=== PATIENT | female | born 1990 | race Caucasian/White ===

== ENCOUNTER 2018-04-20 19:32 | Emergency (ER) | payer BC ==
[2018-04-20 20:41] LABS: BASO # 0.1 10^3/uL (0.0-0.2); BASO % 0.6 % (0.0-1.0); EOS % 0.4 % (0.0-3.0); HEMATOCRIT 35.5 % (36.0-47.0); HEMOGLOBIN 11.9 g/dl (12.0-15.5); IMMATURE GRANULOCYTE % 0.3 % (0-3.0); LYMPH # 2.9 10^3/uL (1.5-6.5); LYMPH % 28.5 % (24.0-44.0); MEAN CORPUSCULAR HEMOGLOBIN 29.3 pg (27.0-33.0); MEAN CORPUSCULAR HGB CONC 33.5 g/dl (32.0-36.5); MEAN CORPUSCULAR VOLUME 87.4 fl (80.0-96.0); MONO # 1.1 10^3/uL (0.0-0.8); MONO % 10.4 % (0.0-5.0); NEUTROPHILS # 6.2 10^3/uL (1.8-7.7); NEUTROPHILS % 59.8 % (36.0-66.0); PLATELET COUNT, AUTOMATED 292 10^3/uL (150-450); RED BLOOD COUNT 4.06 10^6/uL (4.00-5.40); RED CELL DISTRIBUTION WIDTH 12.7 % (11.5-14.5); WHITE BLOOD COUNT 10.3 10^3/uL (4.0-10.0)
[2018-04-20] MEDS: METOPROLOL TART 25 MG TABLET PO (21:00)
[2018-04-20 21:26] LABS: CONTROL LINE HCG INT CTR LINE PRESENT; HCG, SERUM QUALITATIVE NEGATIVE (NEGATIVE)
[2018-04-20 21:41] LABS: FREE T4 4.68 NG/DL (0.76-1.46); GLUCOSE, FASTING 85 MG/DL (70-100); POTASSIUM SERUM 3.9 MEQ/L (3.5-5.1); SODIUM LEVEL 140 MEQ/L (136-145); TROPONIN I < 0.02 NG/ML (< 0.10)
[2018-04-20 21:46] LABS: CK-MB VALUE MASS < 1.0 NG/ML (<3.6)
[2018-04-20 21:47] LABS: ALBUMIN 3.8 GM/DL (3.2-5.2); ALBUMIN/GLOBULIN RATIO 1.15 (1.00-1.93); ALKALINE PHOSPHATASE 56 U/L (45-117); ALT/SGPT 21 U/L (12-78); ANION GAP 10 MEQ/L (8-16); AST/SGOT 15 U/L (7-37); BILIRUBIN,DIRECT 0.2 MG/DL (0.0-0.2); BILIRUBIN,TOTAL 0.4 MG/DL (0.2-1.0); BLOOD UREA NITROGEN 12 MG/DL (7-18); CALCIUM LEVEL 8.7 MG/DL (8.5-10.1); CARBON DIOXIDE LEVEL 24 MEQ/L (21-32); CHLORIDE LEVEL 106 MEQ/L (98-107); CPK CREATINE PHOSPHOKINASE 44 U/L (26-192); GLOMERULAR FILTRATION RATE > 60.0 (>60); LIPASE 107 U/L (73-393); MB/CK RELATIVE INDEX 2.27 (< OR =4); T UPTAKE 49 % (30-39); TOTAL PROTEIN 7.1 GM/DL (6.4-8.2)
[2018-04-20 21:50] LABS: APPEARANCE, URINE CLEAR (CLEAR); BACTERIA, URINE AUTO 2+ (NEGATIVE); BILIRUBIN, URINE AUTO NEGATIVE (NEGATIVE); BLOOD, URINE BLOOD 2+ (NEGATIVE); COLOR, URINE YELLOW (YELLOW); GLUCOSE, URINE (UA) AUTO NEGATIVE (NEGATIVE); KETONE, URINE AUTO 1+ mg/dL (NEGATIVE); LEUKOCYTE ESTERASE, URINE AUTO NEGATIVE (NEGATIVE); MUCUS, URINE SMALL (NEGATIVE); NITRITE, URINE AUTO NEGATIVE (NEGATIVE); PROTEIN, URINE AUTO NEGATIVE (NEGATIVE); RBC, URINE AUTO 28 /HPF (0-3); SPECIFIC GRAVITY URINE AUTO 1.018 (1.002-1.035); SQUAMOUS EPITHELIAL CELL UR AU 1 /HPF (0-6); UROBILINOGEN, URINE AUTO 0.2 mg/dL (0.0-2.0); WBC, URINE AUTO 2 /HPF (0-3)
[2018-04-20 21:52] LABS: THYROID STIMULATING HORMONE 0.006 uIU/ML (0.358-3.740)
[2018-04-20 22:22] LABS: THYROXINE (T4) > 24.0 UG/DL (4.5-12.0)
[2018-04-20] MEDS: traMADol 50 MG TAB PO (22:57)
[2018-04-20] MEDS: predniSONE 20 MG TAB PO (22:58)
== END 2018-04-21 02:10 | disposition home or self-care (01) ==
LOC: M ED 04-21 02:10
DX: E05.90 Thyrotoxicosis, unspecified without thyrotoxic crisis or storm (principal); I48.0 Paroxysmal atrial fibrillation; I47.1 Supraventricular tachycardia; Z91.041 Radiographic dye allergy status; Z88.6 Allergy status to analgesic agent; Z88.5 Allergy status to narcotic agent; Z88.8 Allergy status to other drugs, medicaments and biological substances; Z79.899 Other long term (current) drug therapy
CPT/HCPCS: 74176

== ENCOUNTER 2020-11-28 11:23 | Emergency (ER) | payer BC ==
[~2020-11-28] VITALS: Ht 167.6 cm; Wt 84.2 kg
[~2020-11-28 11:23] MED LIST: FLEC10TA PO; METH25TAB PO; NITR0.4D6 TD; TOPR50TA PO; birth control PO
[2020-11-28] MEDS ORDERED: ONDANSETRON 4MG/2ML VIAL IV ONE (12:00)
[2020-11-28] MEDS ORDERED: NS 1,000 ML IV ONE (12:00)
[2020-11-28] MEDS ORDERED: MORPHINE 4 MG/ML 1ML VIAL/SYRINGE (J2270) IV ONE (12:00)
[2020-11-28 12:16] LABS: HCG, SERUM QUALITATIVE NEGATIVE (NEGATIVE)
[2020-11-28 12:27] LABS: BASO % 0.2 % (0.0-1.0); HEMATOCRIT 41.5 % (36.0-47.0); HEMOGLOBIN 13.2 g/dl (12.0-15.5); LYMPH # 1.2 10^3/uL (1.5-5.0); LYMPH % 7.6 % (24.0-44.0); MEAN CORPUSCULAR HGB CONC 31.8 g/dl (32.0-36.5); MEAN CORPUSCULAR VOLUME 91.2 fl (80.0-96.0); MONO # 1.4 10^3/uL (0.0-0.8); MONO % 8.6 % (0.0-5.0); NEUTROPHILS # 13.3 10^3/uL (1.5-8.5); NEUTROPHILS % 82.7 % (36.0-66.0); PLATELET COUNT, AUTOMATED 354 10^3/uL (150-450); RED BLOOD COUNT 4.55 10^6/uL (4.00-5.40); WHITE BLOOD COUNT 16.1 10^3/uL (4.0-10.0)
[2020-11-28] MEDS ORDERED: NS 1,000 ML IV SCH (12:31)
[2020-11-28 12:36] LABS: ALBUMIN 4.2 GM/DL (3.2-5.2); ALT/SGPT 19 U/L (12-78); BILIRUBIN,DIRECT 0.1 MG/DL (0.0-0.2); BILIRUBIN,TOTAL 0.4 MG/DL (0.2-1.0); BLOOD UREA NITROGEN 10 MG/DL (7-18); CALCIUM LEVEL 8.7 MG/DL (8.5-10.1); CARBON DIOXIDE LEVEL 22 MEQ/L (21-32); CHLORIDE LEVEL 110 MEQ/L (98-107); CREATININE FOR GFR 0.95 MG/DL (0.55-1.30); GLOMERULAR FILTRATION RATE > 60.0 (>60); GLUCOSE, FASTING 141 MG/DL (70-100); LIPASE 111 U/L (73-393); POTASSIUM SERUM 4.1 MEQ/L (3.5-5.1); SODIUM LEVEL 142 MEQ/L (136-145); TOTAL PROTEIN 7.5 GM/DL (6.4-8.2)
--- NOTE | 2020-11-28 13:03 | REP ---
INDICATION: right flank pain, renal colic COMPARISON: 04/20/2018 TECHNIQUE: Axial noncontrast images from the lung bases to the pubic symphysis with coronal and sagittal reformations. This CT examination was performed using the following dose reduction techniques: Automated exposure control, adjustment of mA and/or kv according to the patient's size, and use of iterative reconstruction technique. FINDINGS: Lung bases are clear. Liver, spleen, pancreas, bilateral adrenal glands and kidneys are normal. No hydronephrosis, perinephric stranding, or obstructing ureteral calculi identified. Patient is status post cholecystectomy. The enteric system is without obstruction or acute inflammatory process. Evidence for prior appendectomy noted. Moderate fecal stasis through the colon may be related to patient's symptoms. Pelvis demonstrates normal bladder and mildly prominent uterus raising the possibility of myomatous changes. No ascites. No free air. No adenopathy. Small fat containing periumbilical hernia noted. Abdominal aorta without aneurysm. Musculoskeletal structures are intact. IMPRESSION: 1. Moderate fecal stasis possibly related to patient's symptoms. 2. No further acute abdominopelvic pathology appreciated. 3. Evidence for prior cholecystectomy and appendectomy. 4. Cannot exclude myomatous changes to the uterus. <Electronically signed by Abdirahman Jackson > 11/28/20 [id number]
[2020-11-28] MEDS ORDERED: LevoFLOXacin IV 750 MG in IV 1 EA IV ONE (13:30)
[2020-11-28] MEDS ORDERED: ACETAMINOPHEN 325 MG TAB PO ONE (14:15)
[2020-11-28] MEDS ORDERED: METOCLOPRAMIDE INJ 10MG/2ML VIAL (J2765 PER 1) IV ONE (14:15)
[2020-11-28] MEDS ORDERED: PROMETHAZINE 25 MG TAB PO ONE (14:30)
--- NOTE | 2020-11-28 14:41 | ECGEPIP ---
[facility] - ED Test Date: 2020-11-28 Pat Name: DAYNE MCDUFFIE Department: Room: - Gender: Female [employer] Developer: : 1990 Requested By: LORY BUENROSTRO PA-C. Order Number: [id number] Reading MD: Jennifer Parham Measurements Intervals [place] Rate: 105 P: -23 MN: 167 QRS: 58 QRSD: 88 T: 16 QT: 335 QTc: 444 Interpretive Statements SINUS TACHYCARDIA ABNORMAL RHYTHM ECG NSTTW abnormalities DECREASED RATE 04/20/18 Electronically Signed on 11-28-2020 14:41:07 EST by Jennifer Parham
[2020-11-28 15:44] VITALS: BP 111/65
[2020-11-28] MEDS ORDERED: PROM25TA12 PO (16:05)
[2020-11-28] MEDS ORDERED: LEVO750T13 PO (16:05)
[2020-11-28] MEDS ORDERED: PYRI1TAB5 PO (16:05)
--- NOTE | 2020-11-29 08:59 | ED PDOC ---
Post-Departure Follow-Up radiology report faxed to chetna Esparza Sarah MD Nov 29, 2020 08:59
== END 2020-11-28 17:08 | disposition home or self-care (01) ==
LOC: M ED 11:23
DX: N39.0 Urinary tract infection, site not specified (principal); N10 Acute pyelonephritis; R31.9 Hematuria, unspecified; R00.0 Tachycardia, unspecified; R94.31 Abnormal electrocardiogram [ECG] [EKG]; Z87.442 Personal history of urinary calculi; Z91.041 Radiographic dye allergy status; Z88.6 Allergy status to analgesic agent; Z88.8 Allergy status to other drugs, medicaments and biological substances; Z88.5 Allergy status to narcotic agent; Z88.1 Allergy status to other antibiotic agents
CPT/HCPCS: 36415; 74176; 80048; 80076; 81001; 83690; 84703; 85025; 87086; 93005; 96361; 96365; 96366; 96375; 99284; J1956; J2270; J2405

== ENCOUNTER 2020-12-05 12:16 | Emergency (ER) | payer BC ==
[~2020-12-05] VITALS: Ht 167.6 cm; Wt 77.3 kg
[~2020-12-05 12:16] MED LIST changes: +LEVO750T13 PO; +PROM25TA12 PO; +PYRI1TAB5 PO
[2020-12-05 13:29] LABS: BASO # 0.1 10^3/uL (0.0-0.2); BASO % 0.8 % (0.0-1.0); EOS # 0.3 10^3/uL (0.0-0.5); EOS % 2.7 % (0.0-3.0); HEMATOCRIT 39.4 % (36.0-47.0); HEMOGLOBIN 12.5 g/dl (12.0-15.5); LYMPH # 2.5 10^3/uL (1.5-5.0); MEAN CORPUSCULAR HEMOGLOBIN 28.7 pg (27.0-33.0); MEAN CORPUSCULAR HGB CONC 31.7 g/dl (32.0-36.5); MEAN CORPUSCULAR VOLUME 90.4 fl (80.0-96.0); MONO % 9.2 % (0.0-5.0); NEUTROPHILS # 6.5 10^3/uL (1.5-8.5); NEUTROPHILS % 62.3 % (36.0-66.0); PLATELET COUNT, AUTOMATED 333 10^3/uL (150-450); RED BLOOD COUNT 4.36 10^6/uL (4.00-5.40); WHITE BLOOD COUNT 10.4 10^3/uL (4.0-10.0)
[2020-12-05] MEDS ORDERED: PROMETHAZINE INJ 25 MG/ML VIAL (J2550) IV ONE (13:30)
[2020-12-05] MEDS ORDERED: MORPHINE 4 MG/ML 1ML VIAL/SYRINGE (J2270) IV ONE ×2 (13:30→15:30)
[2020-12-05 13:56] LABS: ALT/SGPT 27 U/L (12-78); BILIRUBIN,DIRECT < 0.1 MG/DL (0.0-0.2); BILIRUBIN,TOTAL 0.4 MG/DL (0.2-1.0); LIPASE 104 U/L (73-393); TOTAL PROTEIN 6.9 GM/DL (6.4-8.2)
--- NOTE | 2020-12-05 14:14 | REP ---
INDICATION: R flank pain, h/o kidney stones and pyelo COMPARISON: 11/28/2020 TECHNIQUE: Axial noncontrast images from the lung bases to the pubic symphysis with coronal and sagittal reformations. This CT examination was performed using the following dose reduction techniques: Automated exposure control, adjustment of mA and/or kv according to the patient's size, and use of iterative reconstruction technique. FINDINGS: Lung bases are clear. Visualized heart and pericardium normal. Liver, spleen, pancreas, bilateral adrenal glands and kidneys are normal. Evidence for prior cholecystectomy. Kidneys are normal and without perinephric stranding, hydroureteronephrosis, intrarenal or obstructing ureteral calculi. The enteric system is unremarkable and without obstruction or acute inflammatory process. Evidence for prior appendectomy. Small fat containing periumbilical hernia noted. Pelvis demonstrates normal bladder and age-appropriate uterus/adnexa. No ascites. No free air. No adenopathy. No focal inflammatory stranding. Abdominal aorta without aneurysm. Musculoskeletal structures are intact and without acute osseous abnormality. IMPRESSION: No acute abdominopelvic pathology appreciated. <Electronically signed by Abdirahman Jackson > 12/05/20 [id number]
[2020-12-05 15:12] LABS: POTASSIUM SERUM 4.3 MEQ/L (3.5-5.1)
[2020-12-05] MEDS ORDERED: BACT800T5 PO (16:19)
[2020-12-05 16:46] VITALS: BP 121/86
== END 2020-12-05 17:11 | disposition home or self-care (01) ==
LOC: M ED 12:16
DX: N39.0 Urinary tract infection, site not specified (principal); N10 Acute pyelonephritis; E05.90 Thyrotoxicosis, unspecified without thyrotoxic crisis or storm; K90.0 Celiac disease; Z86.79 Personal history of other diseases of the circulatory system; Z87.442 Personal history of urinary calculi; Z87.448 Personal history of other diseases of urinary system; Z86.711 Personal history of pulmonary embolism; Z95.0 Presence of cardiac pacemaker; Z79.899 Other long term (current) drug therapy; Z91.041 Radiographic dye allergy status; Z88.6 Allergy status to analgesic agent; Z88.8 Allergy status to other drugs, medicaments and biological substances; Z88.5 Allergy status to narcotic agent
CPT/HCPCS: 74176; 80047; 80076; 81001; 83690; 84132; 84702; 85025; 87086; 96374; 96375; 96376; 99284; J2270

== ENCOUNTER 2021-01-30 12:41 | Emergency (ER) | payer BC ==
[~2021-01-30] VITALS: Ht 167.6 cm; Wt 77.5 kg
[~2021-01-30 12:41] MED LIST changes: +BACT800T5 PO
[2021-01-30] MEDS ORDERED: FERR32TA (12:49)
[2021-01-30] MEDS ORDERED: D-AMPHETAMINE (12:49)
--- NOTE | 2021-01-30 13:39 | REP ---
INDICATION: injury COMPARISON: None. TECHNIQUE: Internal rotation, external rotation, and Y view. FINDINGS: No evidence for acute fracture. Y-view without evidence for dislocation although mild anterior subluxation based on internal rotation view cannot be excluded and should be correlated with physical examination. No periarticular calcification or foreign body. IMPRESSION: No evidence for acute fracture. Mild anterior subluxation without rosemary dislocation at the glenohumeral joint cannot be excluded and should be correlated clinically. <Electronically signed by Abdirahman Jackson > 01/30/21 [id number]
[2021-01-30] MEDS ORDERED: NORCO, ANEXSIA 5/325MG TABLET (HYDROcodone/ACETAMINOPHEN) PO ONE (13:55)
[2021-01-30] MEDS ORDERED: HYDR-3781 PO (14:27)
[2021-01-30 15:02] VITALS: BP 99/61
== END 2021-01-30 15:05 | disposition home or self-care (01) ==
LOC: M ED 12:41
DX: S43.082A Other subluxation of left shoulder joint, initial encounter (principal); X50.0XXA Overexertion from strenuous movement or load, initial encounter; Y92.099 Unspecified place in other non-institutional residence as the place of occurrence of the external cause; Y93.9 Activity, unspecified; Y99.9 Unspecified external cause status; Z88.6 Allergy status to analgesic agent; Z88.8 Allergy status to other drugs, medicaments and biological substances; Z88.5 Allergy status to narcotic agent; Z91.041 Radiographic dye allergy status

== ENCOUNTER 2021-02-04 19:47 | Emergency (ER) | payer BC ==
[~2021-02-04] VITALS: Ht 167.6 cm; Wt 76.8 kg
[~2021-02-04 19:47] MED LIST changes: +D-AMPHETAMINE; +FERR32TA; +HYDR-3781 PO
[2021-02-04] MEDS ORDERED: ACET-861 PO (19:55)
--- NOTE | 2021-02-04 20:31 | REP ---
INDICATION: trauma COMPARISON: 01/30/2021 TECHNIQUE: Internal rotation, external rotation, and Y view. FINDINGS: Left shoulder is without evidence for acute fracture. There appears to be chronic subluxation at the glenohumeral joint similar to prior examination and correlation with history of trauma is recommended. The acromioclavicular joint is normal. IMPRESSION: Stable appearance to the left shoulder with evidence for similar subluxation at the glenohumeral joint. <Electronically signed by Abdirahman Jackson > 02/04/212026
[2021-02-04] MEDS ORDERED: MORPHINE 10 MG/ML 1ML VIAL (J2270) IM ONE (20:40)
--- NOTE | 2021-02-04 22:29 | REPVR ---
PROCEDURE INFORMATION: Exam: XR Left Shoulder Exam date and time: 02/04/2021 9:23 PM Age: 30 years old Clinical indication: Other: Axillary view per Dr payan; Additional info: Axillary view per Dr. Payan please TECHNIQUE: Imaging protocol: XR Left shoulder. Views: 1 view. COMPARISON: CR Shoulder, complete LEFT 02/04/2021 7:57 PM FINDINGS: Bones/joints: Glenohumeral alignment appears normal. Clinical clavicular joint alignment appears normal. No acute fracture or bone lesion. Soft tissues: Unremarkable. IMPRESSION: Normal alignment. Electronically signed by: George Ricardo On 02/04/2021 22:29:19 PM
[2021-02-04] MEDS ORDERED: NORCO 5/325MG TABLET (BULK FOR ED) PO ONE (22:40)
[2021-02-04 23:05] VITALS: BP 113/67
== END 2021-02-04 23:06 | disposition home or self-care (01) ==
LOC: M ED 19:47
DX: S43.032A Inferior subluxation of left humerus, initial encounter (principal); X58.XXXA Exposure to other specified factors, initial encounter; Y92.9 Unspecified place or not applicable; Y93.9 Activity, unspecified; Y99.9 Unspecified external cause status; I30.9 Acute pericarditis, unspecified; Z87.442 Personal history of urinary calculi; E07.9 Disorder of thyroid, unspecified; Z79.899 Other long term (current) drug therapy; Z91.040 Latex allergy status; Z88.6 Allergy status to analgesic agent; Z88.8 Allergy status to other drugs, medicaments and biological substances; Z88.5 Allergy status to narcotic agent; Z88.1 Allergy status to other antibiotic agents
CPT/HCPCS: 73020; 73030; 96372; 99284; J2270

== ENCOUNTER 2021-02-13 20:19 | Emergency (ER) | payer BC ==
[~2021-02-13] VITALS: Ht 167.6 cm; Wt 76.5 kg
[~2021-02-13 20:19] MED LIST changes: +ACET-861 PO
[2021-02-13] MEDS ORDERED: NS 1,000 ML IV ONE (21:00)
[2021-02-13] MEDS ORDERED: ONDANSETRON 4MG/2ML VIAL IV ONE (21:00)
[2021-02-13] MEDS ORDERED: MORPHINE 4 MG/ML 1ML VIAL/SYRINGE (J2270) IV ONE (21:00)
[2021-02-13 22:18] LABS: BASO % 0.3 % (0.0-1.0); HEMATOCRIT 38.1 % (36.0-47.0); HEMOGLOBIN 12.8 g/dl (12.0-15.5); LYMPH # 0.7 10^3/uL (1.5-5.0); MEAN CORPUSCULAR HEMOGLOBIN 29.2 pg (27.0-33.0); MEAN CORPUSCULAR HGB CONC 33.6 g/dl (32.0-36.5); MEAN CORPUSCULAR VOLUME 86.8 fl (80.0-96.0); MONO # 0.2 10^3/uL (0.0-0.8); MONO % 2.4 % (2.0-8.0); PLATELET COUNT, AUTOMATED 301 10^3/uL (150-450); RED BLOOD COUNT 4.39 10^6/uL (4.00-5.40)
[2021-02-13 22:38] LABS: BLOOD UREA NITROGEN 14 MG/DL (7-18); CALCIUM LEVEL 8.9 MG/DL (8.5-10.1); CARBON DIOXIDE LEVEL 23 MEQ/L (21-32); CHLORIDE LEVEL 108 MEQ/L (98-107); CREATININE FOR GFR 0.84 MG/DL (0.55-1.30); GLOMERULAR FILTRATION RATE > 60.0 (>60); GLUCOSE, FASTING 129 MG/DL (70-100); POTASSIUM SERUM 3.9 MEQ/L (3.5-5.1); SODIUM LEVEL 138 MEQ/L (136-145)
[2021-02-13 22:46] LABS: ALBUMIN 4.3 GM/DL (3.2-5.2); BILIRUBIN,DIRECT 0.2 MG/DL (0.0-0.2); BILIRUBIN,TOTAL 0.3 MG/DL (0.2-1.0); TOTAL PROTEIN 7.3 GM/DL (6.4-8.2)
--- NOTE | 2021-02-13 23:15 | REPVR ---
PROCEDURE INFORMATION: Exam: CT Abdomen And Pelvis Without Contrast Exam date and time: 02/13/2021 10:54 PM Age: 30 years old Clinical indication: Abdominal pain; Additional info: Left flank pain; R/O stone TECHNIQUE: Imaging protocol: Computed tomography of the abdomen and pelvis without contrast. Axial, coronal and sagittal reformatted images were created and reviewed. Radiation optimization: All CT scans at this facility use at least one of these dose optimization techniques: automated exposure control; mA and/or kV adjustment per patient size (includes targeted exams where dose is matched to clinical indication); or iterative reconstruction. COMPARISON: CT ABD PELVIS W/O CONTRAST 12/05/2020 1:52 PM FINDINGS: Liver: Unremarkable. Gallbladder and bile ducts: Status post cholecystectomy. No biliary ductal dilatation. Pancreas: Unremarkable. Spleen: Unremarkable. Adrenal glands: Normal. No mass. Kidneys and ureters: No mass. No radiodense calculi. No hydronephrosis. Stomach and bowel: No bowel wall thickening. No obstruction. No pneumatosis. Appendix: Status post appendectomy. Intraperitoneal space: Trace nonspecific free pelvic fluid, likely physiologic. No organized fluid collection. No free air. Vasculature: Unremarkable. No aneurysm. Lymph nodes: No pathologically enlarged lymph nodes. Urinary bladder: Unremarkable as visualized. Reproductive: Unremarkable. Bones/joints: No acute osseous abnormality. Soft tissues: Small, fat containing umbilical hernia. IMPRESSION: 1. Limited noncontrast examination without CT evidence of acute intra-abdominal or pelvic pathology. 2. Additional findings, as above. Electronically signed by: Cole Luz On 02/13/2021 23:15:01 PM
[2021-02-13] MEDS ORDERED: CIPROFLOXACIN 500MG TABLET PO ONE (23:25)
[2021-02-13] MEDS ORDERED: PYRI1TAB5 PO (23:27)
[2021-02-13] MEDS ORDERED: CIPR-249 PO (23:27)
[2021-02-13 23:37] VITALS: BP 111/60
== END 2021-02-13 23:56 | disposition home or self-care (01) ==
LOC: M ED 20:19
DX: N39.0 Urinary tract infection, site not specified (principal); I51.9 Heart disease, unspecified; Z87.442 Personal history of urinary calculi; Z79.899 Other long term (current) drug therapy; Z91.041 Radiographic dye allergy status; Z88.6 Allergy status to analgesic agent; Z88.8 Allergy status to other drugs, medicaments and biological substances; Z88.5 Allergy status to narcotic agent
CPT/HCPCS: 36415; 74176; 80048; 80076; 81001; 83690; 85025; 87086; 96361; 96374; 96375; 99284; J2270; J2405

== ENCOUNTER 2021-03-02 17:01 | Emergency (ER) | payer BC ==
[~2021-03-02] VITALS: Ht 167.6 cm; Wt 76.6 kg
[~2021-03-02 17:01] MED LIST changes: +CIPR-249 PO
[2021-03-02] MEDS ORDERED: D-AMPHETAMINE (17:11)
[2021-03-02] MEDS ORDERED: MORPHINE 4 MG/ML 1ML VIAL/SYRINGE (J2270) IV ONE ×2 (18:25→19:25)
[2021-03-02] MEDS ORDERED: ONDANSETRON 4MG/2ML VIAL IV ONE (18:25)
[2021-03-02 19:05] LABS: BASO # 0.1 10^3/uL (0.0-0.2); BASO % 0.8 % (0.0-1.0); EOS # 0.1 10^3/uL (0.0-0.5); EOS % 1.3 % (0.0-3.0); HEMATOCRIT 37.3 % (36.0-47.0); HEMOGLOBIN 12.5 g/dl (12.0-15.5); LYMPH # 1.9 10^3/uL (1.5-5.0); LYMPH % 20.4 % (24.0-44.0); MEAN CORPUSCULAR HEMOGLOBIN 29.6 pg (27.0-33.0); MEAN CORPUSCULAR HGB CONC 33.5 g/dl (32.0-36.5); MEAN CORPUSCULAR VOLUME 88.4 fl (80.0-96.0); MONO # 0.8 10^3/uL (0.0-0.8); MONO % 8.4 % (2.0-8.0); NEUTROPHILS # 6.4 10^3/uL (1.5-8.5); NEUTROPHILS % 68.9 % (36.0-66.0); PLATELET COUNT, AUTOMATED 320 10^3/uL (150-450); RED BLOOD COUNT 4.22 10^6/uL (4.00-5.40); WHITE BLOOD COUNT 9.2 10^3/uL (4.0-10.0)
[2021-03-02 19:23] LABS: ALBUMIN 4.3 GM/DL (3.2-5.2); ALT/SGPT 22 U/L (12-78); BILIRUBIN,DIRECT 0.1 MG/DL (0.0-0.2); BILIRUBIN,TOTAL 0.4 MG/DL (0.2-1.0); BLOOD UREA NITROGEN 14 MG/DL (7-18); CALCIUM LEVEL 9.2 MG/DL (8.5-10.1); CARBON DIOXIDE LEVEL 24 MEQ/L (21-32); CHLORIDE LEVEL 109 MEQ/L (98-107); CREATININE FOR GFR 0.79 MG/DL (0.55-1.30); GLOMERULAR FILTRATION RATE > 60.0 (>60); GLUCOSE, FASTING 95 MG/DL (70-100); LIPASE 92 U/L (73-393); POTASSIUM SERUM 4.3 MEQ/L (3.5-5.1); SODIUM LEVEL 137 MEQ/L (136-145); TOTAL PROTEIN 7.9 GM/DL (6.4-8.2)
--- NOTE | 2021-03-02 19:34 | REPVR ---
PROCEDURE INFORMATION: Exam: CT Abdomen And Pelvis Without Contrast Exam date and time: 03/02/2021 7:02 PM Age: 30 years old Clinical indication: Abdominal pain; Flank; Left; Additional info: Renal calculus TECHNIQUE: Imaging protocol: Computed tomography of the abdomen and pelvis without contrast. Radiation optimization: All CT scans at this facility use at least one of these dose optimization techniques: automated exposure control; mA and/or kV adjustment per patient size (includes targeted exams where dose is matched to clinical indication); or iterative reconstruction. COMPARISON: CT ABD PELVIS W/O CONTRAST 02/13/2021 10:53 PM FINDINGS: Tubes, catheters and devices: A pacemaker lead is partially visualized in the right atrium. Lungs: The imaged portions of the lung bases are clear. The lungs were not fully imaged. Heart: No cardiomegaly or pericardial effusion. Liver: Unremarkable. No liver lesion is identified. The contour of the liver is smooth. No hepatomegaly is noted. Gallbladder and bile ducts: There has been a cholecystectomy. There is no fluid collection in the gallbladder fossa. No dilation of the bile ducts is noted. No calcified stones are seen in the common bile duct. Pancreas: Unremarkable. No dilation of the main pancreatic duct is noted. There is no inflammatory fat stranding around the pancreas to suggest acute pancreatitis. Spleen: Unremarkable. No splenomegaly is noted. Adrenal glands: Normal. No adrenal mass is noted. Kidneys and ureters: The kidneys are unremarkable. No renal lesion is noted. No stones are noted in the kidneys or ureters. There is no hydronephrosis or hydroureter. Stomach and bowel: The stomach is unremarkable. There is thickening of the wall of a loop of jejunum in the left upper quadrant of the abdomen, which may indicate a jejunitis. There is no evidence for a bowel obstruction, diverticulosis, diverticulitis, colitis, perforated viscus, pneumatosis intestinalis, intussusception, or volvulus. Appendix: The appendix has been removed. Intraperitoneal space: Unremarkable. No fluid collection. No free air. Retroperitoneal space: No fluid collection. No mass. Vasculature: The abdominal aorta is normal in caliber. Lymph nodes: No enlarged lymph nodes. Urinary bladder: The partially distended urinary bladder is unremarkable. No stones or masses are seen in the bladder. Reproductive: The uterus is anterverted and unremarkable. The ovaries are unremarkable. Bones/joints: There is no fracture or dislocation. Incidental note is made of a small bone island in the left femoral head, which is unchanged compared to the prior CT abdomen and pelvis on 02/13/2021. Soft tissues: There is a small fat containing umbilical hernia, which is similar in appearance compared to the prior CT abdomen and pelvis on 02/13/2021. IMPRESSION: 1. Thickening of the wall of a loop of jejunum in the left upper quadrant of the abdomen, which may indicate a jejunitis. 2. No stones in the kidneys, ureters, or urinary bladder. No hydronephrosis or hydroureter. 3. Small fat containing umbilical hernia, which is similar in appearance compared to the prior CT abdomen and pelvis on 02/13/2021. Electronically signed by: Toni Crowder On 03/02/2021 19:35:06 PM
[2021-03-02] MEDS ORDERED: CIPR-249 PO (19:51)
[2021-03-02] MEDS ORDERED: ZOFR4TAB16 PO (19:52)
[2021-03-02] MEDS ORDERED: HYDR-3713 PO (19:57)
[2021-03-02] MEDS ORDERED: NORCO 5/325MG TABLET (BULK FOR ED) PO ONE (20:00)
[2021-03-02 20:06] VITALS: BP 106/58
== END 2021-03-02 20:19 | disposition home or self-care (01) ==
LOC: M ED 17:01
DX: N10 Acute pyelonephritis (principal); K50.00 Crohn's disease of small intestine without complications; I10 Essential (primary) hypertension; I51.9 Heart disease, unspecified; Z87.442 Personal history of urinary calculi; Z79.899 Other long term (current) drug therapy; Z91.041 Radiographic dye allergy status; Z88.6 Allergy status to analgesic agent; Z88.8 Allergy status to other drugs, medicaments and biological substances; Z88.1 Allergy status to other antibiotic agents; Z88.5 Allergy status to narcotic agent
CPT/HCPCS: 74176; 80048; 80076; 81001; 83690; 85025; 87086; 96374; 96375; 96376; 99284; J2270; J2405

== ENCOUNTER 2021-04-01 17:09 | Emergency (ER) | payer BC ==
[~2021-04-01] VITALS: Ht 165.1 cm; Wt 75.5 kg
[~2021-04-01 17:09] MED LIST changes: +HYDR-3713 PO; +ZOFR4TAB16 PO
[2021-04-01] MEDS ORDERED: D-AMPHETAMINE (17:18)
[2021-04-01] MEDS ORDERED: COLCHICINE 0.6 MG TABLET PO ONE (18:15)
--- NOTE | 2021-04-01 18:33 | REP ---
INDICATION: CHEST PAIN. COMPARISON: No comparison chest x-ray TECHNIQUE: Way. FINDINGS: The lungs are well inflated and free of infiltrate. Pleural angles are sharp. Heart size is normal. Pulmonary vasculature is not increased. EKG monitoring electrodes are seen. A transvenous pacemaker is noted in place via the left side. IMPRESSION: No active disease. Pacemaker in place.. <Electronically signed by Steven Coley > 04/01/21 [id number]
[2021-04-01 19:14] LABS: BLOOD UREA NITROGEN 8 MG/DL (7-18); CALCIUM LEVEL 9.1 MG/DL (8.5-10.1); CARBON DIOXIDE LEVEL 25 MEQ/L (21-32); CHLORIDE LEVEL 109 MEQ/L (98-107); CREATININE FOR GFR 0.69 MG/DL (0.55-1.30); GLOMERULAR FILTRATION RATE > 60.0 (>60); GLUCOSE, FASTING 105 MG/DL (70-100); POTASSIUM SERUM 3.7 MEQ/L (3.5-5.1); SODIUM LEVEL 141 MEQ/L (136-145)
[2021-04-01 19:15] LABS: C REACTIVE PROTEIN QUANTITATIV 1.15 MG/DL (0.00-0.30); CK-MB VALUE MASS < 1.0 NG/ML (<3.6); CPK CREATINE PHOSPHOKINASE 84 U/L (26-192); MB/CK RELATIVE INDEX 1.19 (< OR =4); TROPONIN I < 0.02 NG/ML (< 0.10)
[2021-04-01 20:19] LABS: BASO # 0.1 10^3/uL (0.0-0.2); BASO % 0.6 % (0.0-1.0); EOS % 0.2 % (0.0-3.0); HEMATOCRIT 38.5 % (36.0-47.0); HEMOGLOBIN 12.4 g/dl (12.0-15.5); LYMPH # 1.2 10^3/uL (1.5-5.0); LYMPH % 12.5 % (24.0-44.0); MEAN CORPUSCULAR HGB CONC 32.2 g/dl (32.0-36.5); MEAN CORPUSCULAR VOLUME 90.2 fl (80.0-96.0); MONO % 10.9 % (2.0-8.0); NEUTROPHILS # 7.1 10^3/uL (1.5-8.5); NEUTROPHILS % 75.6 % (36.0-66.0); PLATELET COUNT, AUTOMATED 267 10^3/uL (150-450); RED BLOOD COUNT 4.27 10^6/uL (4.00-5.40); WHITE BLOOD COUNT 9.4 10^3/uL (4.0-10.0)
[2021-04-01 23:30] VITALS: BP 105/69
--- NOTE | 2021-04-02 04:19 | ECGEPIP ---
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
--- NOTE | 2021-04-02 11:19 | ECHO ---
DATE OF PROCEDURE: 04/01/2021 Age: 30 Gender: Female Height: 65 inches Weight: 166 pounds REFERRING PHYSICIAN: Christian Lyle M.D. INDICATION: Chest pain, unspecified. MEASUREMENTS: 2D Measurements: Aortic root 3.2 cm Proximal ascending aorta 2.8 cm Left atrium 2.9 cm Left ventricle diastole 5.0 cm Intraventricular septum 0.68 cm Posterior wall 0.84 cm Inferior vena cava 1.8 cm (more than 50% respiratory variation) Doppler Measurements: No aortic regurgitation No aortic stenosis Aortic valve velocity 123 cm/s LVOT velocity 102 cm/s LVOT VTI 19.4 cm Very mild mitral regurgitation within normal limits Mitral E velocity 83.1 cm/s Mitral A velocity 64.3 cm/s Mitral deceleration time 164 msec Very mild tricuspid regurgitation within normal limits Estimated right ventricular systolic pressure 23-28 mmHg Estimated right atrial pressure 5-10 mmHg No pulmonic regurgitation Pulmonary artery acceleration time 166 msec MITRAL ANNULAR TISSUE DOPPLER E prime septal 11.7 cm/s, E prime lateral 12.0 cm/s DESCRIPTION: Rhythm was sinus. Image quality was good. No pericardial effusion. This was a 2D, M-mode, color flow Doppler, and pulsed wave Doppler examination including mitral annular tissue Doppler. CONCLUSIONS: 1. Presence of endocardial right atrial and right ventricle pacemaker leads. Otherwise normal echocardiogram Doppler. 2. No pericardial effusion. 3. Normal left ventricle internal dimensions and wall thickness. Normal regional LV wall motion and wall thickening. Normal LV systolic function. LVEF 60% by visual estimate. Normal LV diastolic function. Results of this study were communicated by telephone directly to Dr. Christian Lyle. [facility]ITAL[facility]
== END 2021-04-01 23:44 | disposition home or self-care (01) ==
LOC: M ED 17:09
DX: R07.89 Other chest pain (principal); R00.0 Tachycardia, unspecified; Z95.0 Presence of cardiac pacemaker; Z87.442 Personal history of urinary calculi; Z91.041 Radiographic dye allergy status; Z88.6 Allergy status to analgesic agent; Z88.8 Allergy status to other drugs, medicaments and biological substances; Z88.5 Allergy status to narcotic agent; Z88.1 Allergy status to other antibiotic agents

== ENCOUNTER 2021-04-19 15:18 | Emergency (ER) | payer BC ==
[~2021-04-19] VITALS: Ht 167.6 cm; Wt 74.3 kg
--- NOTE | 2021-04-19 17:43 | REP ---
INDICATION: dislocation COMPARISON: None. TECHNIQUE: Internal rotation, external rotation, and Y view. FINDINGS: The acromioclavicular and glenohumeral joints appear intact and without evidence for acute fracture or dislocation. There is a somewhat irregular appearance to the scapula which may be secondary to oblique positioning on internal and external rotation views, but clinical correlation is recommended. IMPRESSION: No evidence for acute acromioclavicular or glenohumeral joint dislocation. Somewhat abnormal appearance to the scapula may be secondary to oblique positioning. <Electronically signed by Abdirahman Jackson > 04/19/21 [id number]
[2021-04-19 18:30] VITALS: BP 124/82
== END 2021-04-19 18:34 | disposition home or self-care (01) ==
LOC: M ED 15:18
DX: M25.512 Pain in left shoulder (principal); M24.412 Recurrent dislocation, left shoulder; Z87.442 Personal history of urinary calculi; Z79.899 Other long term (current) drug therapy; Z91.041 Radiographic dye allergy status; Z88.6 Allergy status to analgesic agent; Z88.8 Allergy status to other drugs, medicaments and biological substances; Z88.1 Allergy status to other antibiotic agents; Z88.5 Allergy status to narcotic agent

== ENCOUNTER 2021-05-05 19:38 | Emergency (ER) | payer BC ==
[~2021-05-05] VITALS: Ht 167.6 cm; Wt 73.7 kg
[2021-05-05 19:39] VITALS: BP 136/73
[2021-05-05] MEDS ORDERED: HALOPERIDOL 5MG/ML VIAL (J1630 PER 1) IV ONE (20:20)
--- NOTE | 2021-05-05 21:21 | REPVR ---
PROCEDURE INFORMATION: Exam: XR Left Shoulder Exam date and time: 05/05/2021 8:15 PM Age: 30 years old Clinical indication: Other: Shoulder pain TECHNIQUE: Imaging protocol: XR Left shoulder. Views: 2 or more views. COMPARISON: CR Shoulder, complete 04/19/2021 5:17 PM FINDINGS: Bones/joints: Abnormal configuration of the scapular again redemonstrated. Unclear if this is related to a congenital abnormality or position. There appears to be inferior subluxation of the humeral head with respect to the glenoid fossa again possibly positional. No fracture. Soft tissues: Normal. IMPRESSION: 1. Abnormal configuration of the scapular again redemonstrated. Unclear if this is related to a congenital abnormality or position. 2. There appears to be inferior subluxation of the humeral head with respect to the glenoid fossa again possibly positional. Electronically signed by: Wilfred Watts On 05/05/2021 21:21:28 PM
[2021-05-05] MEDS ORDERED: LIDOCAINE 5% (LIDODERM) PATCH TD ONE (21:30)
[2021-05-05] MEDS ORDERED: LIDO5DIS41 TOP (21:51)
--- NOTE | 2021-05-06 15:21 | ED PDOC ---
Post-Departure Follow-Up chetna duran faxed formal report of left shoulder film for fu Lauri Coates MD May 06, 2021 15:21
[2021-05-06] MEDS ORDERED: **NOTE PATIENT COMMENT** MISC XX SCH (21:00)
== END 2021-05-05 22:20 | disposition home or self-care (01) ==
LOC: M ED 19:38
DX: S43.031A Inferior subluxation of right humerus, initial encounter (principal); X50.0XXA Overexertion from strenuous movement or load, initial encounter; Y92.003 Bedroom of unspecified non-institutional (private) residence as the place of occurrence of the external cause; Y93.9 Activity, unspecified; Y99.9 Unspecified external cause status; I48.91 Unspecified atrial fibrillation; Z87.442 Personal history of urinary calculi; Z88.6 Allergy status to analgesic agent; Z88.5 Allergy status to narcotic agent; Z91.041 Radiographic dye allergy status; Z79.899 Other long term (current) drug therapy

== ENCOUNTER 2024-10-25 10:10 | Inpatient (IN) | payer BC ==
[~2024-10-25] VITALS: Ht 167.6 cm; Wt 80.0 kg
[~2024-10-25 10:10] MED LIST changes: +FLEC100T27 PO; -FLEC10TA PO; -HYDR-3781 PO; +HYDR-4966 PO; +LEVO1TAB40 PO; -LEVO750T13 PO; +LIDO5DIS41 TOP; +METH-1386 PO; -METH25TAB PO
[2024-10-25] MEDS ORDERED: ACET32TAB PO (10:20)
[2024-10-25] MEDS: MORPHINE 2 MG/ML 1ML VIAL IV ONE (12:41)
[2024-10-25] MEDS: ONDANSETRON 4MG 2ML VIAL IV ONE ×2 (12:41→14:40)
[2024-10-25] MEDS: cefTRIAXone SOD 1 GM in DEXTROSE 5% (D5W) ADV/MINI-BAG 50 ML IV ONE (12:42)
[2024-10-25] MEDS: NS 1,000 ML IV ONE (12:42)
[2024-10-25 12:48] LABS: BASO # 0.1 10^3/uL (0.0-0.2); BASO % 0.3 % (0.0-1.0); HEMATOCRIT 39.6 % (36.0-47.0); HEMOGLOBIN 12.8 g/dl (12.0-15.5); LYMPH # 3.2 10^3/uL (1.5-5.0); MEAN CORPUSCULAR HEMOGLOBIN 27.8 pg (27.0-33.0); MEAN CORPUSCULAR HGB CONC 32.3 g/dl (32.0-36.5); MEAN CORPUSCULAR VOLUME 85.9 fl (80.0-96.0); MONO # 1.8 10^3/uL (0.0-0.8); MONO % 9.6 % (2.0-8.0); NEUTROPHILS # 13.6 10^3/uL (1.5-8.5); NEUTROPHILS % 72.1 % (36.0-66.0); PLATELET COUNT, AUTOMATED 442 10^3/uL (150-450); RED BLOOD COUNT 4.61 10^6/uL (4.00-5.40); WHITE BLOOD COUNT 18.8 10^3/uL (4.0-10.0)
[2024-10-25 13:02] LABS: LIPASE 29 U/L (12-53)
[2024-10-25 13:04] LABS: ALBUMIN 3.8 G/DL (3.2-5.2); ALKALINE PHOSPHATASE 55 U/L (35-104); ALT/SGPT 29 U/L (7.0-40); AST/SGOT 26 U/L (<34); BILIRUBIN,DIRECT 0.2 MG/DL (<0.4); BILIRUBIN,TOTAL 0.6 MG/DL (0.3-1.2); BLOOD UREA NITROGEN 20 MG/DL (9-23); CALCIUM LEVEL 9.6 MG/DL (8.5-10.1); CARBON DIOXIDE LEVEL 23 MMOL/L (20-31); CHLORIDE LEVEL 106 MMOL/L (98-107); CREATININE FOR GFR 0.92 MG/DL (0.55-1.30); GLOMERULAR FILTRATION RATE > 60.0 (>60); GLUCOSE, FASTING 98 MG/DL (60-100); HCG, SERUM QUANTITATIVE < 2.6 MIU/ML (<4.2); SODIUM LEVEL 141 MMOL/L (136-145); TOTAL PROTEIN 7.5 G/DL (5.7-8.2)
[2024-10-25] MEDS: fentaNYL 100 MCG/2 ML INJECTION IV ONE ×2 (13:12→14:40)
[2024-10-25] MEDS ORDERED: AMPH1TAB2 PO (14:38)
[2024-10-25] MEDS ORDERED: ACET1TAB55 PO (14:38)
[2024-10-25] MEDS ORDERED: HOME MED LIST COMPLETE! XX SCH (14:40)
[2024-10-25] MEDS ORDERED: MORPHINE 2 MG/ML 1ML VIAL IV PRN (15:25)
[2024-10-25] MEDS ORDERED: NS 1,000 ML IV ONE (15:35)
[2024-10-25 16:05] VITALS: BP 113/77; TEMP 97.3; O2SAT 98
[2024-10-25 16:09] LABS: INR 1.07; PROTHROMBIN TIME 14.2 SECONDS (12.5-14.5)
[2024-10-25] MEDS ORDERED: ADDERALL 5 MG TAB PO PRN (16:20)
[2024-10-25] MEDS: MORPHINE 4 MG/ML 1ML VIAL IV PRN (16:24)
[2024-10-25] MEDS: NS 1,000 ML IV SCH (16:47)
[2024-10-25] MEDS: MEROPENEM INJ 1 GM in IV 1 EA IV SCH (17:17)
[2024-10-25 20:20] VITALS: BP 102/65; TEMP 97; O2SAT 97
[2024-10-25] MEDS: NS 500 ML IV ONE (21:29)
[2024-10-25] MEDS: HYDROMORPHONE HCL 0.5 MG/ 0.5 ML SYRINGE IV ONE (22:02)
[2024-10-26 03:50] VITALS: BP 105/65; TEMP 97; O2SAT 94
[2024-10-26 04:00] VITALS: O2SAT 94
[2024-10-26 06:21] LABS: HEMATOCRIT 32.5 % (36.0-47.0); MEAN CORPUSCULAR HEMOGLOBIN 28.2 pg (27.0-33.0); MEAN CORPUSCULAR HGB CONC 32.6 g/dl (32.0-36.5); MEAN CORPUSCULAR VOLUME 86.4 fl (80.0-96.0); RED BLOOD COUNT 3.76 10^6/uL (4.00-5.40); WHITE BLOOD COUNT 10.6 10^3/uL (4.0-10.0)
[2024-10-26 06:26] LABS: HEMOGLOBIN 10.6 g/dl (12.0-15.5); PLATELET COUNT, AUTOMATED 315 10^3/uL (150-450)
[2024-10-26 06:48] LABS: ALKALINE PHOSPHATASE 45 U/L (35-104); ALT/SGPT 25 U/L (7.0-40); AST/SGOT 13 U/L (<34); BILIRUBIN,TOTAL 0.5 MG/DL (0.3-1.2); BLOOD UREA NITROGEN 14 MG/DL (9-23); CALCIUM LEVEL 7.9 MG/DL (8.5-10.1); CARBON DIOXIDE LEVEL 25 MMOL/L (20-31); CHLORIDE LEVEL 108 MMOL/L (98-107); CREATININE FOR GFR 0.93 MG/DL (0.55-1.30); GLOMERULAR FILTRATION RATE > 60.0 (>60); GLUCOSE, FASTING 111 MG/DL (60-100); POTASSIUM SERUM 4.3 MMOL/L (3.5-5.1); SODIUM LEVEL 140 MMOL/L (136-145); TOTAL PROTEIN 5.9 G/DL (5.7-8.2)
[2024-10-26] MEDS: ACETAMINOPHEN 325 MG TAB PO PRN (07:54)
[2024-10-26] MEDS: TAMSULOSIN 0.4 MG CAP PO SCH (09:25)
[2024-10-26] MEDS: MORPHINE 2 MG/ML 1ML VIAL IV ONE (11:16)
[2024-10-26] MEDS ORDERED: MORPHINE 2 MG/ML 1ML VIAL IV PRN (11:25)
[2024-10-26 12:20] VITALS: BP 106/66; TEMP 97; O2SAT 97
[2024-10-26] MEDS: MORPHINE 4 MG/ML 1ML VIAL IV PRN (16:05)
[2024-10-26 20:00] VITALS: BP 100/60; TEMP 97.2; O2SAT 96
[2024-10-26] MEDS: HYDROMORPHONE HCL 0.5 MG/ 0.5 ML SYRINGE IV ONE (23:20)
[2024-10-26] MEDS: ONDANSETRON 4MG 2ML VIAL IV PRN (23:23)
[2024-10-27 04:00] VITALS: BP 100/60; TEMP 97.3; O2SAT 98
[2024-10-27 06:27] LABS: HEMATOCRIT 33.3 % (36.0-47.0); HEMOGLOBIN 10.6 g/dl (12.0-15.5); MEAN CORPUSCULAR HGB CONC 31.8 g/dl (32.0-36.5); MEAN CORPUSCULAR VOLUME 87.9 fl (80.0-96.0); PLATELET COUNT, AUTOMATED 311 10^3/uL (150-450); RED BLOOD COUNT 3.79 10^6/uL (4.00-5.40); WHITE BLOOD COUNT 12.5 10^3/uL (4.0-10.0)
[2024-10-27 06:53] LABS: ALBUMIN 2.9 G/DL (3.2-5.2); ALKALINE PHOSPHATASE 42 U/L (35-104); ALT/SGPT 24 U/L (7.0-40); AST/SGOT 13 U/L (<34); BILIRUBIN,TOTAL 0.3 MG/DL (0.3-1.2); BLOOD UREA NITROGEN 12 MG/DL (9-23); CALCIUM LEVEL 8.6 MG/DL (8.5-10.1); CARBON DIOXIDE LEVEL 26 MMOL/L (20-31); CHLORIDE LEVEL 105 MMOL/L (98-107); CREATININE FOR GFR 0.89 MG/DL (0.55-1.30); GLOMERULAR FILTRATION RATE > 60.0 (>60); GLUCOSE, FASTING 120 MG/DL (60-100); POTASSIUM SERUM 3.8 MMOL/L (3.5-5.1); SODIUM LEVEL 139 MMOL/L (136-145); TOTAL PROTEIN 5.7 G/DL (5.7-8.2)
[2024-10-27 12:00] VITALS: BP 114/65; TEMP 97; O2SAT 98
[2024-10-27 20:00] VITALS: BP 113/75; TEMP 97.2; O2SAT 96
[2024-10-27] MEDS: HYDROMORPHONE HCL 0.5 MG/ 0.5 ML SYRINGE IV ONE (23:53)
[2024-10-28 06:07] LABS: HEMATOCRIT 35.7 % (36.0-47.0); HEMOGLOBIN 11.4 g/dl (12.0-15.5); MEAN CORPUSCULAR HEMOGLOBIN 27.5 pg (27.0-33.0); MEAN CORPUSCULAR HGB CONC 31.9 g/dl (32.0-36.5); PLATELET COUNT, AUTOMATED 335 10^3/uL (150-450); RED BLOOD COUNT 4.15 10^6/uL (4.00-5.40)
[2024-10-28 06:41] LABS: ALKALINE PHOSPHATASE 44 U/L (35-104); ALT/SGPT 22 U/L (7.0-40); AST/SGOT 10 U/L (<34); BILIRUBIN,TOTAL 0.4 MG/DL (0.3-1.2); BLOOD UREA NITROGEN 13 MG/DL (9-23); CALCIUM LEVEL 8.8 MG/DL (8.5-10.1); CARBON DIOXIDE LEVEL 29 MMOL/L (20-31); CHLORIDE LEVEL 106 MMOL/L (98-107); CREATININE FOR GFR 0.86 MG/DL (0.55-1.30); GLOMERULAR FILTRATION RATE > 60.0 (>60); GLUCOSE, FASTING 103 MG/DL (60-100); SODIUM LEVEL 139 MMOL/L (136-145); TOTAL PROTEIN 6.1 G/DL (5.7-8.2)
[2024-10-28] MEDS: methylPREDNISolone 125MG 2ML VIAL IV ONE (10:43)
[2024-10-28] MEDS ORDERED: ISOVUE-370 76% 100ML VIAL As Ordered ONE (10:56)
[2024-10-28 13:00] VITALS: BP 110/63; TEMP 97.3; O2SAT 97
[2024-10-28] MEDS ORDERED: MOM 30ML SUSPENSION UDC PO PRN (17:00)
[2024-10-28] MEDS ORDERED: HYDROMORPHONE HCL 0.5 MG/ 0.5 ML SYRINGE IV PRN (17:05)
[2024-10-28] MEDS: HYDROMORPHONE HCL 0.5 MG/ 0.5 ML SYRINGE IV PRN (18:10)
[2024-10-28 20:00] VITALS: BP 123/71; TEMP 98.6; O2SAT 94
[2024-10-28] MEDS: SENNA 8.6 MG TAB (SENOKOT) PO SCH (20:44)
[2024-10-28] MEDS: DOCUSATE SODIUM 100MG CAPSULE PO SCH (20:44)
[2024-10-29 03:56] VITALS: BP 123/71; TEMP 98; O2SAT 95
[2024-10-29 05:52] LABS: HEMATOCRIT 35.7 % (36.0-47.0); HEMOGLOBIN 11.8 g/dl (12.0-15.5); MEAN CORPUSCULAR HEMOGLOBIN 28.4 pg (27.0-33.0); MEAN CORPUSCULAR HGB CONC 33.1 g/dl (32.0-36.5); MEAN CORPUSCULAR VOLUME 85.8 fl (80.0-96.0); PLATELET COUNT, AUTOMATED 338 10^3/uL (150-450); RED BLOOD COUNT 4.16 10^6/uL (4.00-5.40); WHITE BLOOD COUNT 17.8 10^3/uL (4.0-10.0)
[2024-10-29 06:33] LABS: ALKALINE PHOSPHATASE 43 U/L (35-104); ALT/SGPT 25 U/L (7.0-40); AST/SGOT 9 U/L (<34); BILIRUBIN,TOTAL 0.4 MG/DL (0.3-1.2); BLOOD UREA NITROGEN 17 MG/DL (9-23); CALCIUM LEVEL 9.1 MG/DL (8.5-10.1); CARBON DIOXIDE LEVEL 29 MMOL/L (20-31); CHLORIDE LEVEL 104 MMOL/L (98-107); CREATININE FOR GFR 0.77 MG/DL (0.55-1.30); GLOMERULAR FILTRATION RATE > 60.0 (>60); GLUCOSE, FASTING 134 MG/DL (60-100); POTASSIUM SERUM 4.5 MMOL/L (3.5-5.1); SODIUM LEVEL 139 MMOL/L (136-145)
[2024-10-29 11:25] LABS: C REACTIVE PROTEIN QUANTITATIV < 0.50 MG/DL (<1.0)
[2024-10-29 11:37] LABS: PROCALCITONIN <0.04 ng/ml
[2024-10-29 12:00] VITALS: BP 117/69; TEMP 97.2; O2SAT 96
[2024-10-29] MEDS: HYDROMORPHONE HCL 0.5 MG/ 0.5 ML SYRINGE IV PRN (12:41)
[2024-10-29] MEDS: ERTAPENEM SODIUM 1 GM in NS MINI-BAG PLUS 50 ML IV SCH (18:44)
[2024-10-29 20:00] VITALS: BP 115/68; TEMP 97.2; O2SAT 96
[2024-10-30 04:00] VITALS: BP 115/69; TEMP 97.3; O2SAT 94
[2024-10-30 06:09] LABS: HEMATOCRIT 35.6 % (36.0-47.0); HEMOGLOBIN 11.2 g/dl (12.0-15.5); MEAN CORPUSCULAR HEMOGLOBIN 27.5 pg (27.0-33.0); MEAN CORPUSCULAR HGB CONC 31.5 g/dl (32.0-36.5); MEAN CORPUSCULAR VOLUME 87.5 fl (80.0-96.0); PLATELET COUNT, AUTOMATED 329 10^3/uL (150-450); RED BLOOD COUNT 4.07 10^6/uL (4.00-5.40); WHITE BLOOD COUNT 15.3 10^3/uL (4.0-10.0)
[2024-10-30 06:38] LABS: ALBUMIN 2.9 G/DL (3.2-5.2); ALKALINE PHOSPHATASE 44 U/L (35-104); ALT/SGPT 28 U/L (7.0-40); AST/SGOT 12 U/L (<34); BILIRUBIN,TOTAL 0.3 MG/DL (0.3-1.2); BLOOD UREA NITROGEN 20 MG/DL (9-23); CALCIUM LEVEL 8.7 MG/DL (8.5-10.1); CARBON DIOXIDE LEVEL 31 MMOL/L (20-31); CHLORIDE LEVEL 104 MMOL/L (98-107); CREATININE FOR GFR 0.84 MG/DL (0.55-1.30); GLOMERULAR FILTRATION RATE > 60.0 (>60); GLUCOSE, FASTING 95 MG/DL (60-100); POTASSIUM SERUM 4.1 MMOL/L (3.5-5.1); SODIUM LEVEL 140 MMOL/L (136-145); TOTAL PROTEIN 5.6 G/DL (5.7-8.2)
[2024-10-30 12:00] VITALS: BP 115/71; TEMP 97.3; O2SAT 95
[2024-10-30 20:00] VITALS: BP 118/70; TEMP 97.3; O2SAT 98
[2024-10-31 04:00] VITALS: BP 122/67; TEMP 97.5; O2SAT 98
[2024-10-31 07:01] LABS: HEMATOCRIT 36.8 % (36.0-47.0); HEMOGLOBIN 11.8 g/dl (12.0-15.5); MEAN CORPUSCULAR HEMOGLOBIN 27.9 pg (27.0-33.0); MEAN CORPUSCULAR HGB CONC 32.1 g/dl (32.0-36.5); PLATELET COUNT, AUTOMATED 305 10^3/uL (150-450); RED BLOOD COUNT 4.23 10^6/uL (4.00-5.40); WHITE BLOOD COUNT 14.8 10^3/uL (4.0-10.0)
[2024-10-31 07:25] LABS: ALKALINE PHOSPHATASE 49 U/L (35-104); ALT/SGPT 25 U/L (7.0-40); AST/SGOT 13 U/L (<34); BILIRUBIN,TOTAL 0.4 MG/DL (0.3-1.2); BLOOD UREA NITROGEN 14 MG/DL (9-23); CALCIUM LEVEL 8.5 MG/DL (8.5-10.1); CARBON DIOXIDE LEVEL 31 MMOL/L (20-31); CHLORIDE LEVEL 101 MMOL/L (98-107); GLOMERULAR FILTRATION RATE > 60.0 (>60); GLUCOSE, FASTING 87 MG/DL (60-100); POTASSIUM SERUM 4.1 MMOL/L (3.5-5.1); SODIUM LEVEL 138 MMOL/L (136-145); TOTAL PROTEIN 5.7 G/DL (5.7-8.2)
[2024-10-31] MEDS: ONDANSETRON 4MG 2ML VIAL IV ONE (08:39)
[2024-10-31] MEDS ORDERED: PERC10TA26 PO ×2 (10:07→10:28)
[2024-10-31] MEDS ORDERED: BACT800T5 PO (10:07)
[2024-10-31] MEDS ORDERED: ONDA-83 PO (10:30)
[2024-10-31 12:00] VITALS: BP 119/66; TEMP 96.4; O2SAT 96
[2024-10-31 13:44] VITALS: O2SAT 97
== END 2024-10-31 14:00 | disposition home or self-care (01) | DRG 720 ==
LOC: M ED 10:10 → EEVIPCON 15:36 → M ED INP 15:36 → M MSPAV 16:05
PROVIDERS: ADMIT Internal Medicine; ATTEND Internal Medicine
DX: A41.9 Sepsis, unspecified organism (principal); Q61.5 Medullary cystic kidney; K90.0 Celiac disease; N20.0 Calculus of kidney; N39.0 Urinary tract infection, site not specified; R31.9 Hematuria, unspecified; Z95.0 Presence of cardiac pacemaker; F90.9 Attention-deficit hyperactivity disorder, unspecified type; Z88.6 Allergy status to analgesic agent; Z91.040 Latex allergy status; Z88.5 Allergy status to narcotic agent; Z88.8 Allergy status to other drugs, medicaments and biological substances; B96.1 Klebsiella pneumoniae [K. pneumoniae] as the cause of diseases classified elsewhere

== ENCOUNTER 2024-11-28 13:20 | Emergency (ER) | payer BC ==
[~2024-11-28] VITALS: Ht 167.6 cm; Wt 77.6 kg
[~2024-11-28 13:20] MED LIST changes: +ACET1TAB55 PO; +ACET32TAB PO; +AMPH1TAB2 PO; +ONDA-83 PO; +PERC10TA26 PO
[2024-11-28 14:29] LABS: BASO % 0.3 % (0.0-1.0); HEMATOCRIT 35.5 % (36.0-47.0); HEMOGLOBIN 11.5 g/dl (12.0-15.5); LYMPH # 2.7 10^3/uL (1.5-5.0); LYMPH % 20.6 % (24.0-44.0); MEAN CORPUSCULAR HEMOGLOBIN 28.3 pg (27.0-33.0); MEAN CORPUSCULAR HGB CONC 32.4 g/dl (32.0-36.5); MEAN CORPUSCULAR VOLUME 87.4 fl (80.0-96.0); MONO # 1.2 10^3/uL (0.0-0.8); MONO % 9.2 % (2.0-8.0); NEUTROPHILS % 69.1 % (36.0-66.0); PLATELET COUNT, AUTOMATED 338 10^3/uL (150-450); RED BLOOD COUNT 4.06 10^6/uL (4.00-5.40)
[2024-11-28 15:00] LABS: LIPASE 28 U/L (12-53)
[2024-11-28 15:01] LABS: AMYLASE 91 U/L (30-118)
[2024-11-28 15:02] LABS: ALBUMIN 3.8 G/DL (3.2-5.2); ALKALINE PHOSPHATASE 44 U/L (35-104); ALT/SGPT 65 U/L (7.0-40); AST/SGOT 40 U/L (<34); BILIRUBIN,DIRECT 0.2 MG/DL (<0.4); BILIRUBIN,TOTAL 0.6 MG/DL (0.3-1.2); BLOOD UREA NITROGEN 14 MG/DL (9-23); CALCIUM LEVEL 9.4 MG/DL (8.5-10.1); CARBON DIOXIDE LEVEL 29 MMOL/L (20-31); CHLORIDE LEVEL 107 MMOL/L (98-107); CREATININE FOR GFR 1.07 MG/DL (0.55-1.30); GLOMERULAR FILTRATION RATE > 60.0 (>60); GLUCOSE, FASTING 96 MG/DL (60-100); POTASSIUM SERUM 3.8 MMOL/L (3.5-5.1); SODIUM LEVEL 145 MMOL/L (136-145); TOTAL PROTEIN 6.7 G/DL (5.7-8.2)
[2024-11-28 15:15] LABS: KETONE, URINE AUTO RFX TRACE mg/dL (NEGATIVE); NITRITE, URINE AUTO RFX NEGATIVE (NEGATIVE); RBC, URINE AUTO RFX 2 /HPF (0-3); SQUAM EPITHELIAL CELL UR AURFX 0 /HPF (0-6)
[2024-11-28 15:31] LABS: LEUKOCYTE ESTERASE UR AUTO RFX 2+ (NEGATIVE)
[2024-11-28] MEDS: ONDANSETRON 4MG 2ML VIAL IV ONE (18:48)
[2024-11-28] MEDS: MORPHINE 4 MG/ML 1ML VIAL IV ONE (18:49)
[2024-11-28] MEDS: MEROPENEM INJ 1 GM in IV 1 EA IV ONE (19:05)
[2024-11-28] MEDS ORDERED: ONDA-282 PO (19:43)
[2024-11-28] MEDS ORDERED: BACT800T5 PO (19:43)
[2024-11-28 19:49] VITALS: BP 129/78; TEMP 96.9; O2SAT 98
[2024-11-28] MEDS: NORCO, ANEXSIA 5/325MG TABLET (HYDROcodone/ACETAMINOPHEN) PO ONE (19:52)
== END 2024-11-28 20:00 | disposition home or self-care (01) ==
LOC: M ED 13:20
DX: N39.0 Urinary tract infection, site not specified (principal); N20.0 Calculus of kidney; Z87.442 Personal history of urinary calculi; K90.0 Celiac disease; Z88.6 Allergy status to analgesic agent; Z88.5 Allergy status to narcotic agent; Z91.041 Radiographic dye allergy status; Z90.49 Acquired absence of other specified parts of digestive tract; Z79.899 Other long term (current) drug therapy
CPT/HCPCS: 74176; 80048; 80076; 81001; 82150; 83690; 85025; 87086; 96365; 96375; 99283; J2184; J2405

== ENCOUNTER 2024-12-24 16:51 | Inpatient (IN) | payer BC ==
[~2024-12-24] VITALS: Ht 167.6 cm; Wt 78.9 kg
[~2024-12-24 16:51] MED LIST changes: +ONDA-282 PO
[2024-12-24 17:55] LABS: APPEARANCE, URINE CLOUDY (CLEAR); BACTERIA, URINE AUTO NEGATIVE (NEGATIVE); BILIRUBIN, URINE AUTO NEGATIVE (NEGATIVE); BLOOD, URINE BLOOD 3+ (NEGATIVE); COLOR, URINE AMBER (YELLOW); GLUCOSE, URINE (UA) AUTO NEGATIVE (NEGATIVE); KETONE, URINE AUTO NEGATIVE (NEGATIVE); LEUKOCYTE ESTERASE, URINE AUTO 1+ (NEGATIVE); MUCUS, URINE MODERATE (NEGATIVE); NITRITE, URINE AUTO NEGATIVE (NEGATIVE); PROTEIN, URINE AUTO 2+ mg/dL (NEGATIVE); RBC, URINE AUTO TNTC /HPF (0-3); SQUAMOUS EPITHELIAL CELL UR AU 28 /HPF (0-6); UROBILINOGEN, URINE AUTO 0.2 mg/dL (0.0-2.0); WBC, URINE AUTO 44 /HPF (0-3)
[2024-12-24 18:25] LABS: BASO % 0.2 % (0.0-1.0); EOS % 0.1 % (0.0-3.0); HEMOGLOBIN 12.5 g/dl (12.0-15.5); LYMPH # 1.6 10^3/uL (1.5-5.0); LYMPH % 9.5 % (24.0-44.0); MEAN CORPUSCULAR HEMOGLOBIN 27.9 pg (27.0-33.0); MEAN CORPUSCULAR HGB CONC 32.9 g/dl (32.0-36.5); MEAN CORPUSCULAR VOLUME 84.8 fl (80.0-96.0); MONO # 1.4 10^3/uL (0.0-0.8); MONO % 8.3 % (2.0-8.0); NEUTROPHILS # 13.6 10^3/uL (1.5-8.5); NEUTROPHILS % 81.1 % (36.0-66.0); PLATELET COUNT, AUTOMATED 387 10^3/uL (150-450); RED BLOOD COUNT 4.48 10^6/uL (4.00-5.40); WHITE BLOOD COUNT 16.8 10^3/uL (4.0-10.0)
[2024-12-24 18:53] LABS: BLOOD UREA NITROGEN 15 MG/DL (9-23); CALCIUM LEVEL 9.4 MG/DL (8.5-10.1); CARBON DIOXIDE LEVEL 23 MMOL/L (20-31); CHLORIDE LEVEL 109 MMOL/L (98-107); GLOMERULAR FILTRATION RATE > 60.0 (>60); GLUCOSE, FASTING 113 MG/DL (60-100); POTASSIUM SERUM 4.1 MMOL/L (3.5-5.1); SODIUM LEVEL 143 MMOL/L (136-145)
[2024-12-24 18:55] LABS: HCG, SERUM QUALITATIVE NEGATIVE (NEGATIVE)
[2024-12-24] MEDS ORDERED: ONDANSETRON 4MG 2ML VIAL As Ordered ONE (23:19)
[2024-12-25] MEDS ORDERED: ACETAMINOPHEN *IV* 1,000 MG in IV 1 EA IV ONE (00:45)
[2024-12-25] MEDS: ACETAMINOPHEN *IV* 1,000 MG in IV 1 EA IV ONE (00:48)
[2024-12-25] MEDS: ONDANSETRON 4MG 2ML VIAL IV ONE (01:10)
[2024-12-25] MEDS: MORPHINE 4 MG/ML 1ML VIAL IV PRN (01:10)
[2024-12-25] MEDS: HYDROMORPHONE HCL 0.5 MG/ 0.5 ML SYRINGE IV PRN ×2 (03:34→06:35)
[2024-12-25] MEDS: cefTRIAXone SOD 2 GM in DEXTROSE 5% (D5W) ADV/MINI-BAG 50 ML IV ONE (05:23)
[2024-12-25] MEDS ORDERED: HYDROMORPHONE HCL 0.5 MG/ 0.5 ML SYRINGE IV PRN (05:35)
[2024-12-25] MEDS ORDERED: MAALOX 30 ML SUSP *UDC PO PRN (05:35)
[2024-12-25] MEDS ORDERED: MOM 30ML SUSPENSION UDC PO PRN (05:35)
[2024-12-25] MEDS ORDERED: NALOXONE INJ 0.4MG/1ML VIAL IV PRN (05:35)
[2024-12-25] MEDS ORDERED: L-NO1TBD4 PO (05:40)
[2024-12-25] MEDS: NS (Normal Saline) 0.9% 1,000 ML IV SCH (06:35)
[2024-12-25] MEDS ORDERED: HOME MED LIST COMPLETE! XX SCH (06:55)
[2024-12-25] MEDS: DOCUSATE SODIUM 100MG CAPSULE PO SCH (08:25)
[2024-12-25 09:18] LABS: BASO # 0.1 10^3/uL (0.0-0.2); BASO % 0.6 % (0.0-1.0); EOS % 0.3 % (0.0-3.0); HEMATOCRIT 34.2 % (36.0-47.0); HEMOGLOBIN 11.2 g/dl (12.0-15.5); LYMPH # 1.7 10^3/uL (1.5-5.0); MEAN CORPUSCULAR HEMOGLOBIN 28.4 pg (27.0-33.0); MEAN CORPUSCULAR HGB CONC 32.7 g/dl (32.0-36.5); MEAN CORPUSCULAR VOLUME 86.6 fl (80.0-96.0); NEUTROPHILS # 9.1 10^3/uL (1.5-8.5); NEUTROPHILS % 76.2 % (36.0-66.0); PLATELET COUNT, AUTOMATED 315 10^3/uL (150-450); RED BLOOD COUNT 3.95 10^6/uL (4.00-5.40); WHITE BLOOD COUNT 11.9 10^3/uL (4.0-10.0)
[2024-12-25] MEDS: MEROPENEM INJ 1 GM in IV 1 EA IV SCH (12:00)
[2024-12-25] MEDS: MORPHINE 2 MG/ML 1ML VIAL IV PRN (13:00)
[2024-12-25] MEDS: PERCOCET 5MG/325MG TAB PO PRN (14:16)
[2024-12-25 15:35] VITALS: BP 110/65; TEMP 96.3; O2SAT 96
[2024-12-25] MEDS: ACETAMINOPHEN 325 MG TAB PO PRN (19:27)
[2024-12-25] MEDS: ONDANSETRON 4MG 2ML VIAL IV PRN (19:27)
[2024-12-25] MEDS: HYDROmorphone 2 MG TAB PO ONE (21:27)
[2024-12-25 22:09] VITALS: BP 129/90; TEMP 97.7; O2SAT 97
[2024-12-26] MEDS ORDERED: METOCLOPRAMIDE INJ 10MG/2ML VIAL IV PRN (00:10)
[2024-12-26] MEDS: HYDROMORPHONE HCL 0.5 MG/ 0.5 ML SYRINGE IV PRN ×2 (00:42→03:56)
[2024-12-26 01:00] VITALS: BP 125/79; TEMP 97; O2SAT 97
[2024-12-26 04:00] VITALS: BP 118/65; TEMP 97.1; O2SAT 95
[2024-12-26 05:42] LABS: HEMATOCRIT 36.4 % (36.0-47.0); MEAN CORPUSCULAR HEMOGLOBIN 28.4 pg (27.0-33.0); MEAN CORPUSCULAR VOLUME 86.1 fl (80.0-96.0); PLATELET COUNT, AUTOMATED 323 10^3/uL (150-450); RED BLOOD COUNT 4.23 10^6/uL (4.00-5.40); WHITE BLOOD COUNT 11.3 10^3/uL (4.0-10.0)
[2024-12-26 06:15] LABS: ALBUMIN 3.3 G/DL (3.2-5.2); ALKALINE PHOSPHATASE 47 U/L (35-104); ALT/SGPT 98 U/L (7.0-40); AST/SGOT 33 U/L (<34); BILIRUBIN,TOTAL 0.4 MG/DL (0.3-1.2); BLOOD UREA NITROGEN 12 MG/DL (9-23); CALCIUM LEVEL 8.6 MG/DL (8.5-10.1); CARBON DIOXIDE LEVEL 27 MMOL/L (20-31); CHLORIDE LEVEL 106 MMOL/L (98-107); CREATININE FOR GFR 0.82 MG/DL (0.55-1.30); GLOMERULAR FILTRATION RATE > 60.0 (>60); GLUCOSE, FASTING 123 MG/DL (60-100); MAGNESIUM LEVEL 1.9 MG/DL (1.8-2.4); POTASSIUM SERUM 4.7 MMOL/L (3.5-5.1); SODIUM LEVEL 140 MMOL/L (136-145); TOTAL PROTEIN 6.3 G/DL (5.7-8.2)
[2024-12-26] MEDS: PERCOCET 5MG/325MG TAB PO PRN (10:02)
[2024-12-26 10:42] LABS: PROCALCITONIN 0.04 ng/ml
[2024-12-26 13:44] VITALS: BP 118/69; TEMP 98.3; O2SAT 97
[2024-12-26] MEDS: KETOROLAC 30 MG/ML 1ML VIAL IV ONE (17:26)
[2024-12-26] MEDS: oxyCODONE 5MG TAB PO PRN (17:27)
[2024-12-26] MEDS: ACETAMINOPHEN 500 MG TAB PO SCH (19:45)
[2024-12-26] MEDS: BACTRIM 160MG/800MG DS TAB PO SCH (19:45)
[2024-12-26 20:02] VITALS: BP 131/74; TEMP 97.5; O2SAT 95
[2024-12-26] MEDS: CYCLOBENZAPRINE 5MG TABLET PO SCH (22:50)
[2024-12-26 23:55] VITALS: BP 130/69; TEMP 97.7; O2SAT 97
[2024-12-27 03:52] VITALS: BP 146/67; TEMP 98.3; O2SAT 96
[2024-12-27 07:20] LABS: BASO % 0.2 % (0.0-1.0); EOS # 0.1 10^3/uL (0.0-0.5); EOS % 0.3 % (0.0-3.0); HEMATOCRIT 39.5 % (36.0-47.0); HEMOGLOBIN 12.9 g/dl (12.0-15.5); LYMPH # 1.8 10^3/uL (1.5-5.0); LYMPH % 10.8 % (24.0-44.0); MEAN CORPUSCULAR HEMOGLOBIN 28.5 pg (27.0-33.0); MEAN CORPUSCULAR HGB CONC 32.7 g/dl (32.0-36.5); MEAN CORPUSCULAR VOLUME 87.4 fl (80.0-96.0); MONO # 1.3 10^3/uL (0.0-0.8); MONO % 7.9 % (2.0-8.0); NEUTROPHILS # 13.5 10^3/uL (1.5-8.5); NEUTROPHILS % 79.8 % (36.0-66.0); PLATELET COUNT, AUTOMATED 383 10^3/uL (150-450); RED BLOOD COUNT 4.52 10^6/uL (4.00-5.40)
[2024-12-27 08:00] VITALS: BP 117/66; TEMP 97.2; O2SAT 97
[2024-12-27 08:17] LABS: ALBUMIN 3.5 G/DL (3.2-5.2); ALKALINE PHOSPHATASE 49 U/L (35-104); ALT/SGPT 81 U/L (7.0-40); AST/SGOT 26 U/L (<34); BILIRUBIN,TOTAL 0.3 MG/DL (0.3-1.2); BLOOD UREA NITROGEN 13 MG/DL (9-23); CALCIUM LEVEL 9.1 MG/DL (8.5-10.1); CARBON DIOXIDE LEVEL 24 MMOL/L (20-31); CHLORIDE LEVEL 106 MMOL/L (98-107); CREATININE FOR GFR 0.93 MG/DL (0.55-1.30); GLOMERULAR FILTRATION RATE > 60.0 (>60); GLUCOSE, FASTING 113 MG/DL (60-100); POTASSIUM SERUM 4.8 MMOL/L (3.5-5.1); SODIUM LEVEL 139 MMOL/L (136-145); TOTAL PROTEIN 6.7 G/DL (5.7-8.2)
[2024-12-27] MEDS ORDERED: KETOROLAC 30 MG/ML 1ML VIAL As Ordered ONE (08:32)
[2024-12-27] MEDS: KETOROLAC 30 MG/ML 1ML VIAL IV ONE (08:41)
[2024-12-27 10:59] LABS: PROCALCITONIN 0.06 ng/ml
[2024-12-27] MEDS: NS (Normal Saline) 0.9% 1,000 ML IV ONE (11:36)
[2024-12-27 12:00] VITALS: BP 117/70; TEMP 97.6; O2SAT 97
[2024-12-27 16:30] VITALS: BP 137/79; TEMP 97.5; O2SAT 97
[2024-12-27 20:00] VITALS: BP 131/82; TEMP 97.3; O2SAT 99
[2024-12-27] MEDS: LIDOCAINE 5% (LIDODERM) PATCH TD SCH (20:04)
[2024-12-28] VITALS: BP 128/71; TEMP 98; O2SAT 98
[2024-12-28 04:00] VITALS: BP 113/63; TEMP 97.6; O2SAT 100
[2024-12-28 06:39] LABS: BASO % 0.3 % (0.0-1.0); EOS % 0.1 % (0.0-3.0); HEMATOCRIT 36.9 % (36.0-47.0); LYMPH # 1.6 10^3/uL (1.5-5.0); MEAN CORPUSCULAR HEMOGLOBIN 28.2 pg (27.0-33.0); MEAN CORPUSCULAR HGB CONC 32.5 g/dl (32.0-36.5); MEAN CORPUSCULAR VOLUME 86.6 fl (80.0-96.0); MONO % 6.9 % (2.0-8.0); NEUTROPHILS # 11.3 10^3/uL (1.5-8.5); NEUTROPHILS % 80.4 % (36.0-66.0); PLATELET COUNT, AUTOMATED 359 10^3/uL (150-450); RED BLOOD COUNT 4.26 10^6/uL (4.00-5.40); WHITE BLOOD COUNT 14.1 10^3/uL (4.0-10.0)
[2024-12-28 07:00] LABS: BLOOD UREA NITROGEN 13 MG/DL (9-23); CALCIUM LEVEL 8.9 MG/DL (8.5-10.1); CARBON DIOXIDE LEVEL 27 MMOL/L (20-31); CHLORIDE LEVEL 103 MMOL/L (98-107); CREATININE FOR GFR 1.01 MG/DL (0.55-1.30); GLOMERULAR FILTRATION RATE > 60.0 (>60); GLUCOSE, FASTING 129 MG/DL (60-100); POTASSIUM SERUM 4.6 MMOL/L (3.5-5.1); SODIUM LEVEL 140 MMOL/L (136-145)
[2024-12-28 09:00] VITALS: BP 99/59; TEMP 97.5; O2SAT 97
[2024-12-28] MEDS ORDERED: HYDROMORPHONE HCL 0.5 MG/ 0.5 ML SYRINGE IV PRN ×2 (11:50→15:25)
[2024-12-28 12:00] VITALS: BP 109/61; TEMP 97.1; O2SAT 98
[2024-12-28] MEDS: NS 500 ML IV ONE (12:20)
[2024-12-28] MEDS: oxyCODONE 5MG TAB PO PRN (13:18)
[2024-12-28] MEDS: HYDROMORPHONE HCL 0.5 MG/ 0.5 ML SYRINGE IV PRN (15:40)
[2024-12-28 16:00] VITALS: BP 137/71; TEMP 97.6; O2SAT 97
[2024-12-28] MEDS: LIDOCAINE 5% (LIDODERM) PATCH TD SCH (20:23)
[2024-12-28 20:32] VITALS: BP 136/73; TEMP 96.2; O2SAT 97
[2024-12-29] VITALS (7 sets, daily range): BP systolic 107–126; BP diastolic 53–80; TEMP 96.9–98.8; O2SAT 96–99
[2024-12-29 06:18] LABS: BASO # 0.1 10^3/uL (0.0-0.2); BASO % 0.6 % (0.0-1.0); HEMATOCRIT 37.9 % (36.0-47.0); HEMOGLOBIN 12.1 g/dl (12.0-15.5); LYMPH # 1.3 10^3/uL (1.5-5.0); MEAN CORPUSCULAR HEMOGLOBIN 28.1 pg (27.0-33.0); MEAN CORPUSCULAR HGB CONC 31.9 g/dl (32.0-36.5); MEAN CORPUSCULAR VOLUME 87.9 fl (80.0-96.0); MONO # 0.5 10^3/uL (0.0-0.8); MONO % 4.1 % (2.0-8.0); NEUTROPHILS # 8.9 10^3/uL (1.5-8.5); NEUTROPHILS % 81.4 % (36.0-66.0); PLATELET COUNT, AUTOMATED 343 10^3/uL (150-450); RED BLOOD COUNT 4.31 10^6/uL (4.00-5.40); WHITE BLOOD COUNT 10.9 10^3/uL (4.0-10.0)
[2024-12-29 06:59] LABS: CALCIUM LEVEL 8.5 MG/DL (8.5-10.1); CREATININE FOR GFR 1.19 MG/DL (0.55-1.30); GLOMERULAR FILTRATION RATE 55.6 (>60); POTASSIUM SERUM 5.1 MMOL/L (3.5-5.1)
[2024-12-29] MEDS: TAMSULOSIN 0.4 MG CAP PO SCH (12:35)
[2024-12-29] MEDS: PATIROMER SORBITEX CALCIUM 8.4 GM POWDER PACKET (VELTASSA) PO ONE (12:35)
[2024-12-30 02:00] VITALS: BP 130/77; TEMP 96.8; O2SAT 98
[2024-12-30 06:00] VITALS: BP 116/69; TEMP 97; O2SAT 98
[2024-12-30 06:28] LABS: BASO # 0.1 10^3/uL (0.0-0.2); BASO % 0.7 % (0.0-1.0); EOS # 0.1 10^3/uL (0.0-0.5); EOS % 0.8 % (0.0-3.0); HEMATOCRIT 33.9 % (36.0-47.0); HEMOGLOBIN 11.2 g/dl (12.0-15.5); LYMPH # 4.3 10^3/uL (1.5-5.0); LYMPH % 34.1 % (24.0-44.0); MEAN CORPUSCULAR HEMOGLOBIN 28.6 pg (27.0-33.0); MEAN CORPUSCULAR VOLUME 86.7 fl (80.0-96.0); MONO % 7.5 % (2.0-8.0); NEUTROPHILS % 55.1 % (36.0-66.0); PLATELET COUNT, AUTOMATED 318 10^3/uL (150-450); RED BLOOD COUNT 3.91 10^6/uL (4.00-5.40); WHITE BLOOD COUNT 12.7 10^3/uL (4.0-10.0)
[2024-12-30 06:55] LABS: BLOOD UREA NITROGEN 18 MG/DL (9-23); CALCIUM LEVEL 7.8 MG/DL (8.5-10.1); CARBON DIOXIDE LEVEL 26 MMOL/L (20-31); CHLORIDE LEVEL 104 MMOL/L (98-107); CREATININE FOR GFR 0.97 MG/DL (0.55-1.30); GLOMERULAR FILTRATION RATE > 60.0 (>60); GLUCOSE, FASTING 89 MG/DL (60-100); POTASSIUM SERUM 4.1 MMOL/L (3.5-5.1); SODIUM LEVEL 140 MMOL/L (136-145)
[2024-12-30 07:49] LABS: PROCALCITONIN 0.07 ng/ml
[2024-12-30 08:30] VITALS: BP 138/69; TEMP 98.1; O2SAT 96
[2024-12-30] MEDS ORDERED: oxyCODONE 5MG TAB PO PRN (09:30)
[2024-12-30] MEDS: oxyCODONE 5MG TAB PO PRN (09:51)
[2024-12-30 12:00] VITALS: BP 110/64; TEMP 98.9; O2SAT 97
[2024-12-30] MEDS ORDERED: SLF 3 ML SYR IV PRN (12:00)
[2024-12-30] MEDS: MORPHINE 2 MG/ML 1ML VIAL IV ONE (13:05)
[2024-12-30] MEDS: SLF 3 ML SYR IV SCH (13:06)
[2024-12-30 20:30] VITALS: BP 152/67; TEMP 98.4; O2SAT 98
[2024-12-31 00:15] VITALS: BP 132/63; TEMP 97.4; O2SAT 95
[2024-12-31] MEDS ORDERED: ADDERALL 5 MG TAB PO PRN (01:10)
[2024-12-31 04:00] VITALS: BP 117/57; TEMP 97.2; O2SAT 99
[2024-12-31] MEDS: traMADol 50 MG TAB PO ONE (04:23)
[2024-12-31 08:00] VITALS: BP_SYST 114; BP_SYST 97; BP_DIAS 55; BP_DIAS 61; TEMP 96.9; TEMP 98.6; O2SAT 98
[2024-12-31] MEDS ORDERED: OXYC1TAB23 PO (09:57)
== END 2024-12-31 12:45 | disposition home or self-care (01) | DRG 465 ==
LOC: M ED 16:51 → M ED INP 12-25 05:33 → M MS4PR 12-25 15:36 → M PED 12-27 16:30
PROVIDERS: ADMIT Student in an Organized Health Care Education/Training Program; ATTEND Internal Medicine
DX: N20.0 Calculus of kidney (principal); I78.0 Hereditary hemorrhagic telangiectasia; Q61.5 Medullary cystic kidney; I48.91 Unspecified atrial fibrillation; N39.0 Urinary tract infection, site not specified; F90.9 Attention-deficit hyperactivity disorder, unspecified type; R31.9 Hematuria, unspecified; Z95.0 Presence of cardiac pacemaker; Z86.711 Personal history of pulmonary embolism; Z91.041 Radiographic dye allergy status; Z88.6 Allergy status to analgesic agent; E74.39 Other disorders of intestinal carbohydrate absorption

== ENCOUNTER → 2025-11-13 | Outpatient (REF) | payer BC ==
[~2025-11-13] MED LIST changes: +L-NO1TBD4 PO; +LIDO1ADH93 TOP; -LIDO5DIS41 TOP; +OXYC1TAB23 PO
[2025-11-13 13:39] LABS: APPEARANCE, URINE CLOUDY (CLEAR); BACTERIA, URINE AUTO 2+ (NEGATIVE); BILIRUBIN, URINE AUTO NEGATIVE (NEGATIVE); BLOOD, URINE BLOOD 3+ (NEGATIVE); GLUCOSE, URINE (UA) AUTO NEGATIVE (NEGATIVE); KETONE, URINE AUTO TRACE mg/dL (NEGATIVE); LEUKOCYTE ESTERASE, URINE AUTO 1+ (NEGATIVE); MUCUS, URINE SMALL (NEGATIVE); NITRITE, URINE AUTO NEGATIVE (NEGATIVE); PROTEIN, URINE AUTO 2+ mg/dL (NEGATIVE); RBC, URINE AUTO TNTC /HPF (0-3); SPECIFIC GRAVITY URINE AUTO 1.024 (1.002-1.035); SQUAMOUS EPITHELIAL CELL UR AU 16 /HPF (0-6); UROBILINOGEN, URINE AUTO 0.2 mg/dL (0.0-2.0); WBC, URINE AUTO 12 /HPF (0-3)
== END ==
LOC: M SMT 12:42
PROVIDERS: ATTEND Physician Assistant
DX: N23 Unspecified renal colic (principal)